=== PATIENT | male | born 2000 | race Caucasian/White ===

== ENCOUNTER 2019-06-25 12:26 | Emergency (ER) | payer MEDICAID ==
[~2019-06-25] VITALS: Ht 180.3 cm; Wt 90.7 kg
--- NOTE | 2019-06-25 12:30 | NUR ---
Patient to ER bed 07 to gown for evaluation. Side rails up.
--- NOTE | 2019-06-25 12:32 | NUR ---
Pt brought by family member, A&Ox4, pt presents to ER with R hip pain , denies tauma, skin pink and warm, cap refill <3, VSS.
[2019-06-25 12:39] VITALS: BP_SYST 156
--- NOTE | 2019-06-25 12:44 | NUR ---
Dr Donis at bedside examining patient
[2019-06-25] MEDS ORDERED: KETOROLAC TROMETHAMINE 60 MG/2 ML VIAL IM ONE (13:00)
--- NOTE | 2019-06-25 13:48 | NUR ---
Pt moved to [place] [id number]
[2019-06-25 14:37] VITALS: BP_SYST 142
--- NOTE | 2019-06-25 14:38 | NUR ---
Patient given written and verbal discharge instructions and verbalizes understanding. ER MD discussed with patient the results and treatment provided. Patient in stable condition. ID arm band removed. Rx of Motrin and [place] given. Patient educated on pain management and to follow up with PMD. Pain Scale 3/10 tolerable for patient . Opportunity for questions provided and answered. Medication side effect fact sheet provided.
== END 2019-06-25 14:38 | disposition home or self-care (01) ==
LOC: SED 12:26
DX: S76.311A Strain of muscle, fascia and tendon of the posterior muscle group at thigh level, right thigh, initial encounter (principal); X50.0XXA Overexertion from strenuous movement or load, initial encounter; Y93.89 Activity, other specified; Y92.89 Other specified places as the place of occurrence of the external cause; Y99.8 Other external cause status
CPT/HCPCS: 72100; 72170; 73502; 96372; 99283; J1885; 99284

== ENCOUNTER 2022-07-18 19:34 | Inpatient (IN) | payer SELFPAY ==
[~2022-07-18] VITALS: Ht 180.3 cm; Wt 145.1 kg
[2022-07-18 19:42] VITALS: BP_SYST 143
[2022-07-18] MEDS ORDERED: NACL 0.9% 2,000 ML IV ONE (20:15)
[2022-07-18 21:38] LABS: BASOPHILS % (AUTO) 0.1 % (0.0-2.0); HEMATOCRIT 44.7 % (36-54); LYMPHOCYTES # (AUTO) 1.3 K/uL (1.0-5.5); LYMPHOCYTES % (AUTO) 13.5 % (20.5-51.5); MEAN CORPUSCULAR HEMOGLOBIN 29 pg (27-31); MEAN CORPUSCULAR HGB CONC 34 % (32-36); MEAN CORPUSCULAR VOLUME 88 fL (79.0-98.0); MONOCYTES # (AUTO) 0.7 K/uL (0.0-1.0); MONOCYTES % (AUTO) 6.9 % (1.7-9.3); NEUTROPHILS # (AUTO) 7.9 K/uL (1.8-7.7); NEUTROPHILS % (AUTO) 79.5 % (40.0-70.0); PLATELET COUNT (AUTO) 222 K/uL (130-430); RED BLOOD CELL COUNT(AUTO) 5.11 MIL/uL (4.2-6.2); RED CELL DISTRIBUTION WIDTH 15.2 % (9.0-15.0); WHITE BLOOD COUNT (AUTO) 9.9 K/uL (4.8-10.8)
[2022-07-18 22:11] LABS: CALCIUM 8.7 mg/dL (8.4-11.0); CREATININE 1.85 mg/dL (0.55-1.30); POTASSIUM 3.6 mmol/L (3.5-5.1)
[2022-07-18 22:16] LABS: ALBUMIN 3.7 g/dL (3.4-4.8); TOTAL BILIRUBIN 0.8 mg/dL (0.0-1.0)
[2022-07-18] MEDS ORDERED: INSULIN REGULAR, HUMAN 100 UNITS in NS 99 ML IV ONE ×2 (23:00)
[2022-07-18] MEDS ORDERED: ONDANSETRON HCL 4 MG/2 ML VIAL IVP PRN (23:15)
[2022-07-18] MEDS ORDERED: ACETAMINOPHEN 500 MG TABLET PO PRN (23:15)
[2022-07-18] MEDS ORDERED: KCL 20 mEq in NS 1000 mL 1,000 ML IV SCH (23:15)
[2022-07-18] MEDS ORDERED: ONDANSETRON 4 MG ODT TAB ONE (23:31)
[2022-07-19] VITALS (23 sets, daily range): BP systolic 119–167
[2022-07-19] MEDS ORDERED: ACETAMINOPHEN 500 MG TABLET PO PRN
[2022-07-19] MEDS ORDERED: [UNRECOGNIZED DRUG - OTHER] IV ONE (00:19)
[2022-07-19] MEDS ORDERED: D5 IV ONE (00:19)
[2022-07-19] MEDS ORDERED: KCL IV ONE ×2 (00:19→00:31)
[2022-07-19] MEDS ORDERED: DEXTROSE 50% JECT 50 ML DISP.SYRIN IVP PRN ×2 (00:30)
[2022-07-19] MEDS ORDERED: INSULIN REGULAR, HUMAN 100 UNITS in NS 99 ML IV SCH ×2 (00:30)
[2022-07-19] MEDS ORDERED: NS 0.45% IV ONE (00:31)
[2022-07-19] MEDS ORDERED: ONDANSETRON 4 MG ODT TAB PO ONE (00:45)
[2022-07-19] MEDS ORDERED: KCL 20 mEq in NS 1000 mL 1,000 ML IV ONE (01:14)
[2022-07-19 02:45] LABS: BILIRUBIN,URINE 1+ (NEGATIVE); BLOOD, URINE 2+ (NEGATIVE); CLARITY/URINE CLEAR (CLEAR); GLUCOSE,URINE 3+ (NEGATIVE); KETONES,URINE 3+ (NEGATIVE); LEUKOCYTE ESTERASE ,URINE NEGATIVE (NEGATIVE); NITRITE, URINE NEGATIVE (NEGATIVE); PROTEIN URINE 1+ (NEGATIVE); UROBILINOGEN,URINE 0.2 (0.2-1.0)
[2022-07-19 03:17] LABS: COLOR,URINE YELLOW (YELLOW)
[2022-07-19 03:19] LABS: BACTERIA,URINE None Seen /HPF (None Seen); RBC,URINE 0-3 /HPF (0-3); WBC,URINE NONE SEEN /HPF (0-3)
[2022-07-19 03:20] LABS: MUCUS,URINE None Seen /LPF (None Seen)
[2022-07-19] MEDS: ONDANSETRON HCL 4 MG/2 ML VIAL IVP PRN ×3 (03:28→20:33)
[2022-07-19] MEDS: KCL 20 mEq in NS 1000 mL 1,000 ML IV SCH ×3 (04:02→15:18)
[2022-07-19 07:19] LABS: BASOPHILS # (AUTO) 0.1 K/uL (0.0-0.2); BASOPHILS % (AUTO) 0.8 % (0.0-2.0); EOSINOPHILS % (AUTO) 0.1 % (0.0-4.0); HEMOGLOBIN 13.8 g/dL (14.0-18.0); LYMPHOCYTES # (AUTO) 1.2 K/uL (1.0-5.5); MEAN CORPUSCULAR HEMOGLOBIN 30 pg (27-31); MEAN CORPUSCULAR HGB CONC 34 % (32-36); MEAN CORPUSCULAR VOLUME 87 fL (79.0-98.0); MONOCYTES # (AUTO) 0.6 K/uL (0.0-1.0); MONOCYTES % (AUTO) 7.4 % (1.7-9.3); NEUTROPHILS # (AUTO) 6.2 K/uL (1.8-7.7); NEUTROPHILS % (AUTO) 76.7 % (40.0-70.0); PLATELET COUNT (AUTO) 226 K/uL (130-430); RED BLOOD CELL COUNT(AUTO) 4.59 MIL/uL (4.2-6.2); RED CELL DISTRIBUTION WIDTH 15.2 % (9.0-15.0); WHITE BLOOD COUNT (AUTO) 8.1 K/uL (4.8-10.8)
[2022-07-19] MEDS: INSULIN REGULAR, HUMAN 100 UNITS in NS 99 ML IV PRN ×8 (07:35→10:40)
[2022-07-19 13:19] LABS: POTASSIUM 3.7 mmol/L (3.5-5.1)
[2022-07-19 13:21] LABS: CREATININE 1.2 mg/dL (0.55-1.30)
[2022-07-19] MEDS ORDERED: INSULIN NPH 100 UNITS/ML 10 ML VIAL SUBCUT ONE (15:30)
[2022-07-19] MEDS: INSULIN Lispro 100 UNITS/ML, 3 ML VIAL (humaLOG) SUBCUT SCH (17:24)
[2022-07-19 17:46] LABS: CALCIUM 8.6 mg/dL (8.4-11.0); CREATININE 1.25 mg/dL (0.55-1.30); POTASSIUM 3.5 mmol/L (3.5-5.1)
[2022-07-19] MEDS: INSULIN LISPRO SLIDING SCALE 100 UNITS/ML, 3 ML VIAL (humaLOG) SUBCUT PRN ×2 (17:50→20:29)
[2022-07-19] MEDS ORDERED: KCL 20 mEq in 100 mL (PREMIX) 100 ML IV ONE (21:30)
[2022-07-20] VITALS (21 sets, daily range): BP systolic 109–164
[2022-07-20] MEDS ORDERED: INSULIN NPH 100 UNITS/ML 10 ML VIAL SUBCUT SCH (07:00)
[2022-07-20 07:41] LABS: CALCIUM 8.2 mg/dL (8.4-11.0); CREATININE 1.2 mg/dL (0.55-1.30); PHOSPHORUS 1.7 mg/dL (2.7-4.5); POTASSIUM 3.1 mmol/L (3.5-5.1)
[2022-07-20] MEDS: INSULIN Lispro 100 UNITS/ML, 3 ML VIAL (humaLOG) SUBCUT SCH ×3 (07:47→18:11)
[2022-07-20] MEDS: KCL 20 mEq in NS 1000 mL 1,000 ML IV SCH ×4 (08:00→21:50)
[2022-07-20] MEDS ORDERED: KCL 20 mEq in 100 mL (PREMIX) 100 ML IV ONE (10:00)
[2022-07-20] MEDS ORDERED: INSULIN NPH 100 UNITS/ML 10 ML VIAL SUBCUT ONE (10:00)
[2022-07-20] MEDS: INSULIN LISPRO SLIDING SCALE 100 UNITS/ML, 3 ML VIAL (humaLOG) SUBCUT PRN ×2 (11:03→18:12)
[2022-07-20] MEDS: ONDANSETRON HCL 4 MG/2 ML VIAL IVP PRN (11:16)
[2022-07-20] MEDS ORDERED: K PHOS 30 MM in NS 250 ML IV ONE (12:00)
[2022-07-20] MEDS: INSULIN NPH 100 UNITS/ML 10 ML VIAL SUBCUT SCH (18:09)
[2022-07-21] VITALS (7 sets, daily range): BP systolic 124–148
[2022-07-21] MEDS: INSULIN LISPRO SLIDING SCALE 100 UNITS/ML, 3 ML VIAL (humaLOG) SUBCUT PRN ×5 (01:00→20:41)
[2022-07-21] MEDS: ONDANSETRON HCL 4 MG/2 ML VIAL IVP PRN (05:55)
[2022-07-21] MEDS: INSULIN Lispro 100 UNITS/ML, 3 ML VIAL (humaLOG) SUBCUT SCH ×3 (06:33→17:32)
[2022-07-21] MEDS: INSULIN NPH 100 UNITS/ML 10 ML VIAL SUBCUT SCH ×2 (06:33→17:47)
[2022-07-21] MEDS: KCL 20 mEq in NS 1000 mL 1,000 ML IV SCH ×2 (08:45→17:42)
[2022-07-21] MEDS ORDERED: LORATADINE 10 MG TABLET PO ONE ×2 (11:00→21:30)
[2022-07-21] MEDS ORDERED: FLUTICASONE PROPIONATE 50 mCg/SPRAY 16 GM NS SCH (11:00)
[2022-07-21 12:30] LABS: CALCIUM 8.5 mg/dL (8.4-11.0); CREATININE 1.12 mg/dL (0.55-1.30)
[2022-07-21] MEDS ORDERED: POTASSIUM CHLORIDE 20 MEQ TAB.PRT.SR PO ONE (13:30)
[2022-07-22] MEDS: KCL 20 mEq in NS 1000 mL 1,000 ML IV SCH ×3 (00:58→17:00)
[2022-07-22] MEDS: INSULIN Lispro 100 UNITS/ML, 3 ML VIAL (humaLOG) SUBCUT SCH ×4 (06:49→17:33)
[2022-07-22] MEDS: INSULIN LISPRO SLIDING SCALE 100 UNITS/ML, 3 ML VIAL (humaLOG) SUBCUT PRN ×3 (06:50→17:32)
[2022-07-22 07:44] LABS: BASOPHILS % (AUTO) 0.6 % (0.0-2.0); EOSINOPHILS # (AUTO) 0.1 K/uL (0.0-0.4); HEMATOCRIT 38.9 % (36-54); HEMOGLOBIN 13.5 g/dL (14.0-18.0); LYMPHOCYTES # (AUTO) 1.1 K/uL (1.0-5.5); LYMPHOCYTES % (AUTO) 13.2 % (20.5-51.5); MEAN CORPUSCULAR HEMOGLOBIN 30 pg (27-31); MEAN CORPUSCULAR HGB CONC 35 % (32-36); MEAN CORPUSCULAR VOLUME 86 fL (79.0-98.0); MONOCYTES # (AUTO) 0.5 K/uL (0.0-1.0); MONOCYTES % (AUTO) 6.1 % (1.7-9.3); NEUTROPHILS # (AUTO) 6.6 K/uL (1.8-7.7); NEUTROPHILS % (AUTO) 79.1 % (40.0-70.0); PLATELET COUNT (AUTO) 98 K/uL (130-430); RED BLOOD CELL COUNT(AUTO) 4.53 MIL/uL (4.2-6.2); RED CELL DISTRIBUTION WIDTH 15.1 % (9.0-15.0); WHITE BLOOD COUNT (AUTO) 8.3 K/uL (4.8-10.8)
[2022-07-22 08:00] VITALS: BP_SYST 124
[2022-07-22 08:28] LABS: ALBUMIN 2.9 g/dL (3.4-4.8); CALCIUM 8.7 mg/dL (8.4-11.0); CREATININE 1.15 mg/dL (0.55-1.30); THYROID STIMULATING HORMONE 2.59 uIu/mL (0.34-4.82); TOTAL BILIRUBIN 0.8 mg/dL (0.0-1.0)
[2022-07-22] MEDS ORDERED: FLUTICASONE PROPIONATE 50 mCg/SPRAY 16 GM NS SCH (09:00)
[2022-07-22] MEDS ORDERED: LORATADINE 10 MG TABLET PO SCH (09:00)
[2022-07-22] MEDS: INSULIN NPH 100 UNITS/ML 10 ML VIAL SUBCUT SCH ×3 (09:09→17:31)
[2022-07-22 09:38] LABS: POTASSIUM 2.9 mmol/L (3.5-5.1)
[2022-07-22 11:35] VITALS: BP_SYST 135
[2022-07-22] MEDS ORDERED: POTASSIUM CHLORIDE 20 MEQ TAB.PRT.SR PO ONE (12:00)
[2022-07-22 16:58] VITALS: BP_SYST 138
[2022-07-22] MEDS ORDERED: EPINEPHrine JECT 0.1 MG/ML SYR IVP ONE (19:41)
[2022-07-22] MEDS ORDERED: NS 1000 ML IV.SOLN IV ONE (19:41)
== END 2022-07-22 19:42 | DRG 638 ==
LOC: SED 19:34 → SIC 23:05 → STU 07-20 19:31
PROVIDERS: ADMIT Family Medicine; ATTEND Family Medicine
PROC: 06HY33Z Insertion of Infusion Device into Lower Vein, Percutaneous Approach (ICD-10-PCS; principal; 2022-07-18)
PROC: B54CZZA Ultrasonography of Left Lower Extremity Veins, Guidance (ICD-10-PCS; 2022-07-18)
DX: E11.10 Type 2 diabetes mellitus with ketoacidosis without coma (principal); N17.9 Acute kidney failure, unspecified; Z68.41 Body mass index [BMI] 40.0-44.9, adult; E87.6 Hypokalemia; E86.0 Dehydration; E66.01 Morbid (severe) obesity due to excess calories; E83.39 Other disorders of phosphorus metabolism; Z79.4 Long term (current) use of insulin; Z20.822 Contact with and (suspected) exposure to COVID-19; Z83.3 Family history of diabetes mellitus
CPT/HCPCS: 36415; 36600; 80048; 80053; 81000; 82009; 82465; 82803-TC; 82962; 83036; 83690; 84100; 84443; 84478; 85025; 87081; 92950; 93005; 96360; 99291; G0378; J0171; J1815; J2405; J3480; J7030; J7050; Q0162